=== PATIENT | female | born 1975 | race Caucasian/White ===

== ENCOUNTER 2020-08-12 18:24 | Emergency (ER) | payer OTHER, SELFPAY ==
[2020-08-12 18:25] VITALS: BP 126/90; PULSE 102; RESP 16; TEMP 36.6; O2SAT 98
--- NOTE | 2020-08-12 19:31 | ED.GENADULT ---
HPI - General Adult General Chief complaint: Unspecified Stated complaint: TOOTH PAIN Time Seen by Provider: 08/12/20 18:25 Source: patient Mode of arrival: ambulatory Limitations: no limitations History of Present Illness HPI narrative: Patient is a 45-year-old female who presents to emergency department for evaluation of dental caries with history of gross decay over the last several days has had increasing pain right side upper molars patient has been taking ibuprofen with minimal improvement presents uncomfortable but in no distress denies fever chills nausea vomiting URI symptoms has not been seen recently for this complaint patient recently was able to get her medical card and would like dental referrals Review of Systems Review of Systems: All systems reviewed & are unremarkable except as noted in HPI and below PMFSH Social History Social History (Updated 08/12/20 @ 19:33 by Freddy Styles PA-C) Smoking status: Current every day smoker Exam Narrative: Exam Narrative: GENERAL: Well-appearing, well-nourished, and in no acute distress. HEAD: Normocephalic, atraumatic. EYES: PERRLA and EOMI. ENT: Nares clear, no rhinorrhea or epistaxis. Mucous membranes moist. Gross dental caries no space-occupying lesions floor the mouth is soft. Uvula is midline no trismus or drooling NECK: Supple. No adenopathy or masses. CHEST: Clear to auscultation. No respiratory distress. No wheezes rales or rhonchi HEART: Regular rate and rhythm. No murmur heard. Normal peripheral pulses. ABDOMEN: Soft, nontender, nondistended, normal active bowel sounds. EXTREMITIES: Normal range of motion. No edema. SKIN: Warm, dry, no rash. NEURO: No focal deficits. Alert and oriented x3. Cranial nerves II through XII grossly intact PSYCH: Normal mood and affect. Course Course Emergency Course: Patient evaluated will be referred to dentistry Vital Signs Vital signs: Vital Signs Temperature 98 F 08/12/20 18:25 Pulse Rate 102 H 08/12/20 18:25 Respiratory Rate 16 08/12/20 18:25 Blood Pressure 126/90 08/12/20 18:25 Pulse Oximetry 98 08/12/20 18:25 Temperature 98 F 08/12/20 18:25 Pulse Rate 102 H 08/12/20 18:25 Respiratory Rate 16 08/12/20 18:25 Blood Pressure 126/90 08/12/20 18:25 Pulse Oximetry 98 08/12/20 18:25 Medical Decision Making MDM Narrative Medical decision making narrative: Paitents pain and complaint coupled with physical findings are consistant with dentalgia. There are no focal signs of space occupying lesions that are compromising to the ariway. The floor of the mouth is soft with no signs of Ludwigs Angina. Patient is without trismus or drooling and able to swallow secreations. Patient is felt appropriate for discharge home with dental follow up. Vital Signs Vital Signs: Vital Signs Temperature 98 F 08/12/20 18:25 Pulse Rate 102 H 08/12/20 18:25 Respiratory Rate 16 08/12/20 18:25 Blood Pressure 126/90 08/12/20 18:25 Pulse Oximetry 98 08/12/20 18:25 Temperature 98 F 08/12/20 18:25 Pulse Rate 102 H 08/12/20 18:25 Respiratory Rate 16 08/12/20 18:25 Blood Pressure 126/90 08/12/20 18:25 Pulse Oximetry 98 08/12/20 18:25 Discharge Plan Discharge Clinical Impression: Dental abscess Patient Disposition: Home, Self-Care Condition: Stable Instructions: Antibiotic Form, Dental Abscess (ED) Additional Instructions: Follow-up with dentistry in the next 7 days for reevaluation Return if symptoms worsen or concerns or any increase in redness swelling pain fever over 100.5 or unable to swallow or open the mouth Stay well-hydrated Follow patient education sheets Only take medications as directed Prescriptions: New hydrocodone-acetaminophen [[place]] 5-325 mg tablet 1 tablet PO Q6H PRN (Reason: pain) Qty: 7 RF: 0 amoxicillin 500 mg capsule 500 mg PO Q8H 10 Days Qty: 30 RF: 0 chlorhexidine gluconate [Peridex] 0.12 % mouthwash 15 ml mucou
[2020-08-12] MEDS: HYDROcodone/acetaminophen (*CRX) 5-325 MG TABLET 1 TAB PO (19:34)
[2020-08-12 19:45] VITALS: BP 118/79; PULSE 98; RESP 18; O2SAT 99
== END 2020-08-12 19:48 | disposition home or self-care (01) ==
PROVIDERS: Emergency Provider Emergency Medicine; Referring Provider Family Medicine
DX: K04.7 Periapical abscess without sinus (principal); F17.200 Nicotine dependence, unspecified, uncomplicated
CPT/HCPCS: 99283; A9270